=== PATIENT | male | born 1960 ===

== ENCOUNTER → 2021-07-01 | Outpatient (CLI) | payer OTHER ==
--- NOTE | 2021-07-01 17:20 | P.STRESS ---
- Stress Test Note Stress Test Results/Findings: Exam Performed: stress test Exam Date: 07/01/21 Reason for Exam: ANGINA PECTORIS Height: 5 ft 10 in Weight: 72.7 kg Protocol: JUSTINO Stage: 5 Duration of Exercise: 13:40 Resting Heart Rate: 70 Resting Blood Pressure: 158/106 Maximum Achieved Heart Rate: 139 Maximum Achieved Blood Pressure: 179/93 85% PMHR: 135 100% PMHR: 159 METS: 14.9 Technologist Comment: Stress Test Results/Findings: This is a 61-year-old gentleman with history of smoking and hypercholesterolemia being evaluated for chest pains. Stress data: Baseline EKG showed sinus rhythm with normal [place] interval and QRS duration. Blood pressure at rest is 158 106 with pulse rate of 70. Patient walked on the Justino protocol for 13 minutes and 40 seconds achieving a maximum heart rate of 139 with a blood pressure of 149/85. EKGs taken during and after exercise did not reveal any changes of ischemia. Patient did not experience any chest pain. Final impression: #1. Negative stress test #2. Patient did not experience any chest pain but 3. No arrhythmias noted. 4. Patient's exercise capacity is good
== END | disposition home or self-care (01) ==
LOC: RADNMMAIN 08:30
PROVIDERS: ATTEND Family Medicine
DX: I20.9 Angina pectoris, unspecified (principal)
CPT/HCPCS: 93017

== ENCOUNTER → 2021-10-06 | Outpatient (CLI) | payer OTHER ==
--- NOTE | 2021-10-06 07:37 | MR ---
EXAMINATION TYPE: MR lumbar spine wo con DATE OF EXAM: 10/06/2021 COMPARISON: NONE HISTORY: lumbar pain TECHNIQUE: Multiplanar, multisequence imaging of the lumbar spine is performed without IV contrast. FINDINGS: Sagittal images of the lumbar spine show vertebral body heights to appear satisfactory. The re is slight grade 1 retrolisthesis L3 on L4. Multilevel disc desiccation moderate to severe disc spa ce narrowing with heterogeneous Modic type I endplate changes at the L4-L5 level. Moderate to severe disc space narrowing with vacuum disc phenomenon and heterogeneous Modic type III endplate changes ri ght L5-S1 level. Mild to moderate disc space narrowing with vacuum disc phenomenon and mild to modera te anterior spurring at the L3-L4 level. The conus medullaris is low-lying terminating at mid to inf erior L2 level. No abnormal signal. No suspicious clumping of the lumbosacral nerve roots. Axial images show T12-L1 and L1-L2 levels to appear within normal limits. Axial images at the L2-L3 level show [id number] broad disc bulge mildly effacing the anterior t hecal sac with patent bilateral neural foramina. Axial images at the L3-L4 level shows subtle spondylolisthesis with moderate broad-based posterior di sc protrusion effacing the anterior thecal sac. There is mild facet degenerative change and ligamentu m flavum hypertrophy effacing posterior lateral thecal sac. There is mild left greater than right galdino ateral anterior inferior neural foraminal narrowing. Axial images at the L4-L5 levels show mild to moderate facet arthropathy and ligament flavum hypertro phy effacing posterior lateral thecal sac. There is mild broad disc bulge mildly effacing the anterio r thecal sac. There is mild bilateral anterior inferior neural foraminal narrowing. Axial images at the L5-S1 level shows mild facet arthropathy bilaterally. There is mild broad disc bu lge with tiny central disc protrusion minimally effacing anterior thecal sac. There is moderate bilat eral anterior inferior narrowing with encroachment along the extraforaminal left L5 nerve anteriorly sagittal image 1 and extraforaminal right L5 nerve inferiorly sagittal image 12 corresponding to axia l image 3. Paraspinal muscle bulk is preserved. IMPRESSION: Multilevel degenerative changes in the mid to lower lumbar spine as detailed above. Corre late for bilateral L5 radiculopathy type symptoms advised.
== END | disposition home or self-care (01) ==
LOC: RADMRIMAIN 06:57
PROVIDERS: ATTEND Nurse Practitioner Acute Care
DX: M51.26 Other intervertebral disc displacement, lumbar region (principal); M43.16 Spondylolisthesis, lumbar region; M47.817 Spondylosis without myelopathy or radiculopathy, lumbosacral region; M99.73 Connective tissue and disc stenosis of intervertebral foramina of lumbar region
CPT/HCPCS: 72148

== ENCOUNTER → 2021-10-07 | Outpatient (CLI) | payer OTHER ==
--- NOTE | 2021-10-07 09:09 | MR ---
EXAMINATION TYPE: MR knee LT wo con DATE OF EXAM: 10/07/2021 COMPARISON: None. HISTORY: Left knee pain and swelling per patient. TECHNIQUE: Multiplanar, multisequence imaging of the left knee is performed without IV contrast. FINDINGS: MEDIAL MENISCUS: Medial extrusion of medial meniscus on coronal images. Fraying and increased signal posterior horn extends into central body greatest along the inferior articular surface consistent wit h full-thickness tear. LATERAL MENISCUS: Anterior and posterior horns are intact without tear. CRUCIATE LIGAMENTS: The anterior and posterior cruciate ligaments are intact and unremarkable. COLLATERAL LIGAMENTS: The medial collateral ligament and lateral collateral ligament complex are inta ct and unremarkable. EXTENSOR MECHANISM: Visualized quadriceps and patellar tendons are intact. EFFUSION: Small size suprapatellar joint effusion. POPLITEAL CYST: No popliteal/cain cyst. TRICOMPARTMENT SPACES: Mild to moderate tricompartment joint space loss and spurring. CARTILAGE: Some cartilaginous loss and fissuring along the posterior patellar pole consistent with ch ondromalacia patella. Fissuring and cartilaginous loss also identified medial tibial femoral compartm ent BONE MARROW SIGNAL: Heterogeneous increased T2 signal along the posterior patellar pole. OTHER: No additional significant abnormality is appreciated. IMPRESSION: 1. Full-thickness tearing of the medial meniscus through the central body and posterior horn. 2. There are moderate tricompartment degenerative changes as detailed above. 3. Small suprapatellar joint effusion.
--- NOTE | 2021-10-07 09:18 | MR ---
EXAMINATION TYPE: MR shoulder LT wo con DATE OF EXAM: 10/07/2021 COMPARISON: None. HISTORY: Left shoulder chronic pain with difficulty raising arm overhead TECHNIQUE: Multiplanar, multisequence imaging of the left shoulder is performed without contrast. FINDINGS: Rotator Cuff: Distal supraspinatus and infraspinatus tendons are intact. Subscapularis tendon intact axial image 16 for reference. Rotator cuff muscle bulk is preserved. Acromioclavicular Joint: Acromioclavicular joint appears within normal limits. Underlying fat plane i s maintained. Distal acromion morphology unremarkable. Glenohumeral Joint: Large osteophyte extending inferiorly from the medial aspect of the humeral head. Osseous glenoid shows heterogeneous increased signal diffusely with moderate to severe glenohumeral joint narrowing. Small rim of thickened joint effusion noted extending inferiorly coronal image 13 Labrum: The superiorly labrum has increased signal consistent with SLAP-type tear. Biceps Tendon: The long head of biceps is in normal location within bicipital groove. Increased signa l in the intracapsular portion noted seen best on sagittal images Bone marrow signal: Marked heterogeneous increased T2 signal in the osseous glenoid. Diminished T1 an d increased T2 signal involving the humeral head superior slightly medial aspect. Other: No additional significant abnormality is appreciated. IMPRESSION: 1. Fairly advanced glenohumeral joint arthropathy as detailed above likely accounting for SLAP type t ear of the superior labrum and intracapsular bicipital tendinopathy. Suspect developing avascular nec rosis of the humeral head.
== END | disposition home or self-care (01) ==
LOC: RADMRIMAIN 07:40
PROVIDERS: ATTEND Nurse Practitioner Acute Care
DX: M17.12 Unilateral primary osteoarthritis, left knee (principal); M25.462 Effusion, left knee; M23.222 Derangement of posterior horn of medial meniscus due to old tear or injury, left knee; M19.012 Primary osteoarthritis, left shoulder

== ENCOUNTER 2023-03-07 08:17 | Day surgery (SDC) | payer OTHER ==
[~2023-03-07 08:17] MED LIST: LACTATED RINGERS 1,000 ML IV SCH; LIDOCAINE 1% (10MG/ML) FOR IV START INTRADERMA PRN
[2023-03-07 09:07] VITALS: RESP 16; TEMP 97.5
[2023-03-07] MEDS ORDERED: PROPOFOL 10 MG/ML 20 ML VIAL IV ONE (09:39)
--- NOTE | 2023-03-07 09:43 | P.GSHP ---
History of Present Illness H&P Date: 03/07/23 Chief Complaint: Colon cancer screening 62-year-old male here for colonoscopy. No bowel complaints. No family history of colon cancer. Last colonoscopy 14 years ago. Past Medical History Past Medical History: No Reported History History of Any Multi-Drug Resistant Organisms: None Reported Additional Past Surgical History / Comment(s): hernia repair Past Anesthesia/Blood Transfusion Reactions: No Reported Reaction Smoking Status: Former smoker Medications and Allergies Home Medications Medication Instructions Recorded Confirmed Type Acetaminophen Tab [Tylenol Tab] 1,000 mg PO Q6HR PRN 03/03/23 03/03/23 History Allergies Allergy/AdvReac Type Severity Reaction Status Date / Time No Known Allergies Allergy Verified 03/03/23 09:42 Surgical - Exam Vital Signs Temp Pulse Resp BP Pulse Ox 97.5 F L 63 16 154/91 100 03/07/23 09:00 03/07/23 09:00 03/07/23 09:00 03/07/23 09:00 03/07/23 09:00 Physical exam: General: Well-developed, well-nourished HEENT: Normocephalic, sclerae nonicteric Abdomen: Nontender, nondistended Extremities: No edema Neuro: Alert and oriented Assessment and Plan (1) Colon cancer screening Narrative/Plan: Will proceed with colonoscopy at this time. Current Visit: Yes Status: Acute Code(s): Z12.11 - ENCOUNTER FOR SCREENING FOR MALIGNANT NEOPLASM OF COLON SNOMED Code(s): 082831893
--- NOTE | 2023-03-07 09:53 | P.PCN ---
Date of Procedure: 03/07/23 Procedure(s) Performed: PREOPERATIVE DIAGNOSIS: Colon cancer screening POSTOPERATIVE DIAGNOSIS: Normal exam PROCEDURE: Colonoscopy ANESTHESIA: MAC SURGEON: Ravi Roche M.D. SPECIMENS: None ENDOSCOPIC PROCEDURE: The patient was placed on the endoscopy table in the left decubitus position. The Olympus colonoscope was inserted into the anus and passed under direct visualization to the base of the cecum. The appendiceal orifice was visualized. From that point the scope was slowly withdrawn inspecti ng all surfaces carefully. There were no neoplastic inflammatory or polypoid lesions throughout the cecum, ascending, transverse, descending, sigmoid and rectum. There was no visible diverticulosis noted. Digital rectal examination was normal. The patient was taken to the recovery room in stable condition per anesthesia guidelines. RECOMMENDATIONS: Resume diet. Repeat colonoscopy in 10 years.
[2023-03-07 10:15] VITALS: BP 132/85; PULSE 59
== END 2023-03-07 10:41 | disposition home or self-care (01) ==
LOC: ORWHC2ENDO 08:17
PROVIDERS: ATTEND Surgery
DX: Z12.11 Encounter for screening for malignant neoplasm of colon (principal); Z98.890 Other specified postprocedural states; Z87.891 Personal history of nicotine dependence; Z79.899 Other long term (current) drug therapy
CPT/HCPCS: 45378; J2704

== ENCOUNTER → 2024-08-09 | Outpatient (CLI) | payer OTHER | END | disposition home or self-care (01) | LOC: LABPAT 15:38 | PROVIDERS: ATTEND Orthopaedic Surgery | DX: Z01.812 Encounter for preprocedural laboratory examination (principal); M17.11 Unilateral primary osteoarthritis, right knee; Z22.322 Carrier or suspected carrier of Methicillin resistant Staphylococcus aureus | CPT/HCPCS: 87070 ==

== ENCOUNTER 2024-08-20 05:43 | Day surgery (SDC) | payer OTHER ==
--- NOTE | 2024-08-19 08:51 | P.HPOR ---
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 He notes anterior medial pain along with swelling and stiffness. He is having night symptoms. He's tried medications along with injections with only minimal relief. He notes daily pain that limits his function and activities. Review of Systems Per HPI Past Medical History Past Medical History: Hyperlipidemia, Hypertension, Osteoarthritis (OA) Additional Past Medical History / Comment(s): hx of elevated liver enzymes due to naproxen, returned to normal. left shoulder pain and slight tear. History of Any Multi-Drug Resistant Organisms: None Reported Additional Past Surgical History / Comment(s): hernia repair. colonoscopy Past Anesthesia/Blood Transfusion Reactions: No Reported Reaction Smoking Status: Former smoker, Light tobacco smoker - Past Family History Father Family Medical History: Diabetes Mellitus Additional Family Medical History / Comment(s): etoh abuse, smoker. liver issues Medications and Allergies Home Medications Medication Instructions Recorded Confirmed Type Losartan-Hctz 50-12.5 mg [Hyzaar 1 tab PO DAILY 08/15/24 08/15/24 History 50-12.5] Rosuvastatin Calcium 5 mg PO HS 08/15/24 08/15/24 History Unk Multi Vitamin 1 tab PO DAILY 08/15/24 08/15/24 History Unk Naproxen 1 tab PO DIRECTED PRN 08/15/24 08/15/24 History Unk Tylenol 1 tab PO DIRECTED PRN 08/15/24 08/15/24 History Loratadine 10 mg PO HS 08/16/24 08/16/24 History Allergies Allergy/AdvReac Type Severity Reaction Status Date / Time No Known Allergies Allergy Verified 08/15/24 11:57 Physical Examination - Knee right Appearance: effusion Effusion grade: grade 1 Varus alignment in stance: 10 degrees Tenderness with palpation: anterior, medial Pain: throughout ROM Gait: limping ROM: extension: -10 degrees ROM: flexion: 120 degrees Crepitus with motion: Yes Strength: extension: 5/5 Strength: flexion: 5/5 Meniscal tests: medial meniscal tests: positive, medial joint line pain: positive Results He is a well-developed well-nourished male approximately 5 foot 10, 173 pounds of mesomorphic habitus. HEENT exam is nonfocal, neck is supple. He has painless passive motion of the right hip. Straight leg raise is negative. He is tender about the medial joint line of the right knee. Collaterals were stable, North was negative, Jeanna's is equivocal. He has genu varum alignment. His distal neurovascular exam appears intact right lower extremity. - Diagnostic results Knee x-ray: image reviewed (Trays of the right knee obtained in the office show severe medial compartment osteoarthrosis with [id number] changes and subchondral sclerosis.) Assessment and Plan Assessment: Right knee severe medial and patellofemoral compartment osteoarthrosis Plan: I talked with patient at length regarding his condition along with treatment options. At this point he is quite sympathetic having pain and mechanical symptoms related to his right knee osteoarthrosis despite conservative measures. After a thorough discussion he opts to proceed with surgery. We'll plan to proceed with right total knee arthroplasty. Risks and benefits were discussed at length in layman's terms. We will institute DVT prophylaxis postoperatively.
[~2024-08-20 05:43] MED LIST changes: -LACTATED RINGERS 1,000 ML IV SCH; -LIDOCAINE 1% (10MG/ML) FOR IV START INTRADERMA PRN; +TRANEXAMIC 1,000 MG/100ML-NACL 1,000 MG in SALINE 1 100ML.BAG IVPB PRN
[2024-08-20] MEDS ORDERED: LIDOCAINE 1% (10MG/ML) FOR IV START INTRADERMA PRN (05:44)
[2024-08-20] MEDS: ACETAMINOPHEN TAB 500 MG TAB PO PRN (06:26)
[2024-08-20] MEDS: MELOXICAM 7.5 MG TAB PO PRN (06:26)
[2024-08-20] MEDS: LACTATED RINGERS 1,000 ML IV SCH (06:56)
[2024-08-20] MEDS: ONDANSETRON 4 MG/2 ML VIAL IVP ONE (06:56)
[2024-08-20] MEDS: DEXAMETHASONE SOD PHOSPHATE 4 MG/ML 1 ML VIAL IV ONE (06:56)
[2024-08-20] MEDS: IV FLUID CONTINUATION 1,000 ML IV ONE (06:57)
[2024-08-20] MEDS ORDERED: HYDROmorphone 0.5 MG/0.5 ML SYRINGE IVP PRN ×2 (07:00→09:11)
[2024-08-20] MEDS: MIDAZOLAM 2 MG/2 ML VIAL IV PRN (07:01)
[2024-08-20] MEDS: fentaNYL (PF) 50 MCG/ML 2 ML AMP IVP PRN (07:02)
--- NOTE | 2024-08-20 07:24 | P.ANPRN ---
Procedure Note - Anesthesia - Nerve Block Performed Right Adductor Canal Infusion Time Out Performed: Yes Date of Procedure: 08/20/24 Procedure Start Time: 07:01 Procedure Stop Time: 07:12 Location of Patient: PreOp Indication: Acute Post-Operative Pain, Requested by Surgeon Sedation Type: Sedate with meaningful contact maintained Preparation: Sterile Prep, Sterile Dressing Position: Supine Catheter: Indwelling Needle Types: Pajunk Needle Gauge: 18 Ultrasound used to visualize needle placement: Yes Ultrasound used to observe medication spread: Yes Injectate: 0.5% Ropivacaine (see comment for volume) (15 ml + 15 ml NS +4 mg Dexamethasone) Blood Aspirated: No Pain Paresthesia on Injection Noted: No Resistance on Injection: Normal Image Stored and Saved: Yes Events: Uneventful and Well Tolerated
--- NOTE | 2024-08-20 07:25 | P.ANPRN ---
Procedure Note - Anesthesia - Nerve Block Performed Right iPack Single Time Out Performed: Yes Date of Procedure: 08/20/24 Procedure Start Time: 07:13 Procedure Stop Time: 07:18 Location of Patient: PreOp Indication: Acute Post-Operative Pain, Requested by Surgeon Sedation Type: Sedate with meaningful contact maintained Preparation: Sterile Prep Position: Left Lateral Needle Types: Pajunk Needle Gauge: 21 Ultrasound used to visualize needle placement: Yes Ultrasound used to observe medication spread: Yes Injectate: 0.5% Ropivacaine (see comment for volume) (15 ml + 15 ml NS +4 mg Dexamethasone) Blood Aspirated: No Pain Paresthesia on Injection Noted: No Resistance on Injection: Normal Image Stored and Saved: Yes Events: Uneventful and Well Tolerated
[2024-08-20] MEDS: ceFAZolin 1,000 MG in SODIUM CHLORIDE 0.9% 1,000 ML IRRIGATION ONE (08:03)
[2024-08-20] MEDS: LACTATED RINGERS 1,000 ML IV ONE (08:52)
[2024-08-20] MEDS ORDERED: MAGNESIUM HYDROXIDE 2,400 MG/30 ML CUP PO PRN (09:11)
[2024-08-20] MEDS ORDERED: HYDROmorphone 1 MG/ML 1 ML SYRINGE IVP PRN (09:11)
[2024-08-20] MEDS ORDERED: ONDANSETRON 4 MG/2 ML VIAL IVP PRN (09:11)
[2024-08-20] MEDS ORDERED: NALOXONE 0.4 MG/ML 1 ML VIAL IV PRN (09:11)
[2024-08-20] MEDS ORDERED: HYDROcodone/APAP 7.5-325MG 1 EACH TAB PO PRN (09:11)
--- NOTE | 2024-08-20 09:30 | P.OP ---
Date of Procedure: 08/20/24 Preoperative Diagnosis: Right knee severe tricompartmental osteoarthrosis Postoperative Diagnosis: Same Procedure(s) Performed: Right total knee arthroplastycementedcruciate retaining Implants: DePuy attune size 8 cemented femoral component, size 7 cemented tibial component, 9 mm articular surface, 38 mm cemented patellar component. This is a cruciate retaining implant. Anesthesia: regional, spinal Surgeon: Pino Wood Special Services Coordinator #1: Kaden Asif Estimated Blood Loss (ml): 50 Pathology: none sent Condition: stable Disposition: PACU Indications for Procedure: The patient is a 64-year-old gentleman who presents with progressive right knee pain secondary to osteoarthrosis despite conservative measures. A discussion of the risks and benefits of operative intervention versus continued conservative measures was made with the patient. He opted to proceed with surgery. Operative risks include infection, neurovascular injury, development of blood clots, fracture, possible component loosening/failure and possible need for subsequent procedures was discussed. Informed consent was obtained. Operative Findings: As below Description of Procedure: The patient was brought to the operating room, and after induction of spinal anesthesia the right lower extremity was prepped and draped in a normal fashion. The tourniquet was inflated to 270 mmHg. A longitudinal incision extending 3 finger breaths above the superior pole of the patella extending to the medial aspect the tibial tubercle was then made. The skin and subcutaneous tissues were divided sharply. Electrocautery was used for hemostasis. A medial parapatellar arthrotomy was then performed. The medial soft tissues to include the superficial and deep portions of the medial collateral ligament as well as the medial hamstring tendons were elevated subperiosteally. The proximal medial tibia osteophytes were carefully removed. The patella was everted. The knee was flexed. A portion of the retropatellar fat pad was excised sharply. The anterior cruciate ligament was sacrificed. A starting hole was made in the distal femur 1 cm anterior to the posterior cruciate origin. An intramedullary femoral guide was gently inserted planning on 5 valgus distal cut with 9 mm distal resection. The cutting block was pinned in place. The distal cut was then made. The posterior referencing sizing guide was utilized. 3 of external rotation was built into the system and verified off the trans- epicondylar axis and the posterior condyles. I felt size 8 was most appropriate. The cutting block was pinned in place. The anterior, posterior, and chamfer cuts were then made. The bone fragments were removed. A sulcus cut was then made with the appropriate guide. The trial size 8 femoral component was then placed and was fully seated. There was good anterior to posterior and medial to lateral fit. The distal peg holes were then drilled. The trial component was then removed. Attention was then paid towards preparing the proximal tibia. An extra medullary guide was utilized in line with the tibial shaft and second metatarsal distally. A 7 posterior slope was planned. I planned on 2 mm resection from the medial compartment. The cutting block was pinned in place. The proximal tibial cut was then made. The bone was removed in one fragment. The remnants of the medial and lateral menisci were excised the capsule junction with electrocautery. The tibia sized most appropriately at size 7. The posterior osteophytes off the distal femur were carefully removed with a curved osteotome. The trial tibial and femoral components were placed along with a 9 millimeters articular surface. I was able to obtain full flexion and extension with good stability with varus and valgus stress. After several flexion and extension cycles, the tibial rotation was marked with electrocautery in line with the medial one third of the tibial tubercle. Attention was then paid towards preparing the patella. A patella reamer was utilized taking this down to 14 mm of bone stock. A good flush cut was made. The patella sized most appropriately at 38 millimeters. The peg holes were then drilled. The trial component was placed. The knee was taken through a range of motion. I had good patellofemoral tracking with no hands technique. The trial components were then removed. The tibia was prepared in the appropriate rotation with appropriate drill and keel punch. The flexion and extension gaps were checked and felt to be symmetric. The bony surfaces were prepared with pulsatile lavage and dried. The deep tibial component was then cemented in place and was fully seated. Excess cement was removed. The femoral component was cemented in place and was fully seated. Again excess cement was removed. The trial 9 millimeters surface was then inserted in the knee was put in full extension. The patella component was cemented in place. After the cement had sufficiently hardened, the knee was again taken through a range of motion. Again there was good stability in flexion and extension with varus and valgus stress. The trial articular surface was then removed. The final articular surface was placed and was impacted. Care was taken to avoid any soft tissue interposition. Pulsatile lavage was again utilized. The tourniquet was deflated with approximately 60 m inutes total tourniquet time. There was minimal drainage therefore a deep drain was not placed. The medial parapatellar arthrotomy was then closed with #2 Ethibond suture. The subcutaneous tissues were reapproximated interrupted 2-0 Vicryl sutures. The skin was reapproximated with 3-0 subarticular strata fix suture. Skin tape and adhesive was applied. A sterile dressing was applied. The patient was then awoken from sedation and transferred to recovery room in good condition. Blood loss was estimated at 50 milliliters. No complications were incurred. Sponge and needle counts were correct at the end the case. Kaden KILPATRICK assisted during the major components this case to include exposure, bone resection, and implantation.
[2024-08-20] MEDS: ROPIVACAINE 1,100 MG, SODIUM CHLORIDE 0.9% 500 ML 330 ML, EMPTY PAIN BALL 1 EACH MISCELLANE PRN (09:40)
--- NOTE | 2024-08-20 10:47 | XR ---
EXAMINATION TYPE: XR knee limited RT DATE OF EXAM: 08/20/2024 10:03 AM COMPARISON: 06/07/2024 CLINICAL INDICATION: Male, 64 years old with history of Evaluation for Postop abnormality and alignme nt, , FINDINGS: Images show placement of right total knee arthroplasty. Both distal femoral and proximal tibial compo nents of the prosthesis are well seated without periprosthetic fracture. Alignment grossly anatomic. Anterior soft tissue swelling with soft tissue air as well as intra-articular air related to recent o peration. IMPRESSION: Uncomplicated postoperative appearance right total knee arthroplasty. [facility], , 08/20/2024 10:44 AM
--- NOTE | 2024-08-20 16:27 | P.CONS ---
History of Present Illness - Reason for Consult Consult date: 08/20/24 Medical Management Requesting physician: Pino Wood - History of Present Illness History of Presenting Illness: Patient is a very pleasant 64-year-old male with a past medical history of hypertension, hyperlipidemia, and osteoarthritis. He is currently admitted under orthopedic surgery team status post right total knee arthroplasty. We were consulted for medical management throughout hospitalization. Patient was seen and fully evaluated in room 462 shortly after completion of surgical procedure. He reports he is doing well and states postoperative pain is currently managed and under control. He denies having any postoperative nausea or vomiting and reports urinating without any difficulties since procedure. Patient denies having any other complaints including headache, lightheadedness, dizziness, chest pain, palpitations, shortness of breath, or experiencing any focal numbness in extremities. Review of systems: Pertinent positives and negatives as discussed in HPI, a complete review of systems was performed and all other systems are negative. Physical exam: Vital signs reviewed and stable. General: Nontoxic, no distress and appears stated age. Derm: Skin warm and dry, normal coloration for ethnicity. Head: Atraumatic, normocephalic and symmetric. Eyes: EOM's intact, no lid lag, and anicteric sclera Mouth: no lip lesions, mucus membranes moist Cardiovascular: regular rate and rhythm with normal S1S2, no murmur, positive posterior tibial pulses bilaterally, and cap refill < 2 seconds. Lungs: Respirations even, regular, and unlabored on room air. Lungs CTA bilaterally, no rhonchi, no rales, no wheezing, and no accessory muscle usage. Abdominal: soft, nontender to palpation, no guarding, no appreciable organomegaly Ext: Movement and sensation intact.. No gross muscle atrophy, no edema, no contractures. Postoperative dressing/Erasmo wrap in place to right knee. Ice pack also in place at this time. Neuro: Speech clear, face symmetrical and CN II-XII grossly intact with no noted focal neuro deficits Psych: Alert and oriented to person, place, time, and situation. Appropriate and pleasant affect. Assessment and Plan of Care: Status post right total knee arthroplasty Management per primary admitting orthopedic surgery team including DVT prophylaxis, pain management, wound/dressing management, weightbearing, and PT/OT. Currently DVT prophylaxis with Xarelto 10 mg daily. Hypertension Monitor vital signs and continue daily medication regimen with losartanhydrochlorothiazide 50-12.5 mg tablets daily. Hyperlipidemia Continue daily medication regimen with rosuvastatin 5 mg nightly. Data and imaging reviewed: Reviewed operative report. Vital signs reviewed. Blood pressure 119/74, heart rate 91, respiratory rate 19, temp 97.4 F, and SpO2 100% on room air. Thank you for allowing us to participate in the care of this pleasant patient. Do not hesitate to contact us with questions. Someone can be reached from the [facility] hospitalist group all hours of the day at [phone] or via [employer]. Patient was seen independently by Nurse Practitioner. This document was prepared using [employer] dictation software. Please allow for errors in radial saw operator while rare they do occur. Gildardo Brewer NP rendered care for this patient independently, reviewed the findings and plan as documented in the note above and agree with plan. I did not physically speak with or examine the patient on this date. Past Medical History Past Medical History: Hyperlipidemia, Hypertension, Osteoarthritis (OA) Additional Past Medical History / Comment(s): hx of elevated liver enzymes due to naproxen, returned to normal. left shoulder pain and slight tear. History of Any Multi-Drug Resistant Organisms: None Reported Additional Past Surgical History / Comment(s): hernia repair. colonoscopy Past Anesthesia/Blood Transfusion Reactions: No Reported Reaction Past Psychological History: No Psychological Hx Reported Smoking Status: Former smoker, Light tobacco smoker Past Alcohol Use History: None Reported Additional Past Alcohol Use History / Comment(s): quit 18 yrs ago Past Drug Use History: Marijuana Additional Drug Use History / Comment(s): cbd gummie , pt aware not to use 24 hrs before procedure - Past Family History Father Family Medical History: Diabetes Mellitus Additional Family Medical History / Comment(s): etoh abuse, smoker. liver issues Medications and Allergies Home Medications Medication Instructions Recorded Confirmed Type Losartan-Hctz 50-12.5 mg [Hyzaar 1 tab PO DAILY 08/15/24 08/20/24 History 50-12.5] Rosuvastatin Calcium 5 mg PO HS 08/15/24 08/20/24 History Unk Multi Vitamin 1 tab PO DAILY 08/15/24 08/20/24 History Unk Naproxen 1 tab PO DIRECTED PRN 08/15/24 08/20/24 History Unk Tylenol 1 tab PO DIRECTED PRN 08/15/24 08/20/24 History Loratadine 10 mg PO HS 08/16/24 08/20/24 History Allergies Allergy/AdvReac Type Severity Reaction Status Date / Time No Known Allergies Allergy Verified 08/20/24 06:12 Physical Exam Vitals: Vital Signs Temp Pulse Pulse Resp BP BP Pulse Ox 08/20/24 09:57 70 16 114/70 100 08/20/24 09:42 70 16 114/63 100 08/20/24 09:27 97.1 F L 78 14 118/62 99 08/20/24 07:25 62 16 120/79 99 08/20/24 06:25 98.3 F 66 18 118/74 99 Intake and Output 08/19/24 08/20/24 08/20/24 22:59 06:59 14:59 Intake Total 200 1051 Output Total 50 Balance 200 1001 Intake: IV 200 1051 Output: Estimated Blood Loss 50 Other: Weight 76.6 kg 76.6 kg
[2024-08-20] MEDS: ATORVASTATIN 10 MG TAB PO SCH (21:31)
[2024-08-20] MEDS: LORATADINE 10 MG TAB PO SCH (21:31)
[2024-08-20] MEDS: SENNOSIDES-DOCUSATE SODIUM 1 EACH TAB PO SCH (21:31)
[2024-08-20] MEDS: HYDROcodone/APAP 5-325MG 1 EACH TAB PO PRN (21:31)
--- NOTE | 2024-08-21 07:00 | P.PN ---
Progress Note - Text Progress Note Date: 08/21/24 Postoperative day # 1 status post total knee arthroplasty, and adductor canal catheter placed for postoperative analgesia, currently at ropivacaine 0.2% 8 mL per hour and continuous infusion, visual analogue scale is 2/10, patient using oral pain medication for breakthrough pain. Assessment and plan= Acute postoperative pain, adductor canal catheter for pain control, pain is well controlled we'll continue the same management.
[2024-08-21 08:29] LABS: Basophils # (A) 0.01 X 10*3/uL (0.00-0.10); Basophils % (A) 0.1 %; Eosinophils # (A) 0 X 10*3/uL (0.04-0.35); Eosinophils % (A) 0 %; HCT 32.7 % (39.6-50.0); HGB 11.2 g/dL (13.0-17.0); Lymphocytes # (A) 0.67 X 10*3/uL (0.90-5.00); Lymphocytes % (A) 5.7 %; MCH 31.3 pg (27.0-32.0); MCHC 34.3 g/dL (32.0-37.0); MCV 91.3 FL (80.0-97.0); Mean Platelet Volume 10.4 FL (9.5-12.2); Monocytes # (A) 1.04 X 10*3/uL (0.20-1.00); Monocytes % (A) 8.9 %; NRBC Per 100 WBC 0 X 10*3/uL (0.00-0.01); Neutrophils # (A) 9.89 X 10*3/uL (1.80-7.70); Neutrophils % (A) 84.8 %; Platelet Count 175 X 10*3/uL (140-440); RBC 3.58 X 10*6/uL (4.40-5.60); RDW 12.5 % (11.5-14.5); WBC 11.67 X 10*3/uL (4.50-10.00)
[2024-08-21 08:38] VITALS: BP 111/67; PULSE 66; RESP 17; TEMP 97.9
[2024-08-21] MEDS: RIVAROXABAN 10 MG TAB PO SCH (08:55)
[2024-08-21] MEDS: LOSARTAN-HCTZ 50-12.5 MG 1 EACH TAB PO SCH (08:55)
[2024-08-21 09:02] LABS: Blood Urea Nitrogen 17.1 mg/dL (9.0-27.0); Calcium 8.7 mg/dL (8.7-10.3); Carbon Dioxide 22.2 mmol/L (21.6-31.8); Chloride 104 mmol/L (96-109); Glucose 133 mg/dL (70-110); Potassium 4.4 mmol/L (3.5-5.5); Sodium 137 mmol/L (135-145)
--- NOTE | 2024-08-21 12:37 | P.PN ---
Subjective Progress Note Date: 08/21/24 Hospital Course: Patient is a very pleasant 64-year-old male with a past medical history of hypertension, hyperlipidemia, and osteoarthritis. He is currently admitted under orthopedic surgery team status post right total knee arthroplasty. We were consulted for medical management throughout hospitalization. Physical exam: Patient seen and fully evaluated at bedside. He is postoperative day 1 and appears to be doing well. Patient reports pain is currently controlled and states that he worked well with physical therapy with walking and doing the stairs. Patient denies having any questions, needs, complaints, or concerns at this time. Vital signs reviewed and stable. General: Nontoxic, no distress and appears stated age. Derm: Skin warm and dry, normal coloration for ethnicity. Head: Atraumatic, normocephalic and symmetric. Eyes: EOM's intact, no lid lag, and anicteric sclera Mouth: no lip lesions, mucus membranes moist Cardiovascular: regular rate and rhythm with normal S1S2, no murmur, positive posterior tibial pulses bilaterally, and cap refill < 2 seconds. Lungs: Respirations even, regular, and unlabored on room air. Lungs CTA bilaterally, no rhonchi, no rales, no wheezing, and no accessory muscle usage. Abdominal: soft, nontender to palpation, no guarding, no appreciable organomegal y Ext: Movement and sensation intact.. No gross muscle atrophy, no edema, no contractures. Postoperative dressing/Erasmo wrap in place to right knee. Ice pack also in place at this time. Neuro: Speech clear, face symmetrical and CN II-XII grossly intact with no noted focal neuro deficits Psych: Alert and oriented to person, place, time, and situation. Appropriate and pleasant affect. Assessment and Plan of Care: Status post right total knee arthroplasty Management per primary admitting orthopedic surgery team including DVT prophylaxis, pain management, wound/dressing management, weightbearing, and PT/OT. Currently DVT prophylaxis with Xarelto 10 mg daily. Hypertension Monitor vital signs and continue daily medication regimen with losartan hydrochlorothiazide 50-12.5 mg tablets daily. Hyperlipidemia Continue daily medication regimen with rosuvastatin 5 mg nightly. Data and imaging reviewed: Postoperative labs reviewed. CBC showing leukocytosis with WBC count of 11.67 and normocytic anemia with hemoglobin of 11.2. BMP unremarkable. Blood glucose 133. Magnesium 2.0. Vital signs reviewed. Blood pressure 111/67, heart rate 66, respiratory rate 17, temp 97.9 F, and SpO2 of 99% on room air. Patient is medically optimized and cleared from medical perspective for discharge once cleared by primary admitting orthopedic surgery team. Thank you for allowing us to participate in the care of this pleasant patient. Do not hesitate to contact us with questions. Someone can be reached from the [facility] hospitalist group all hours of the day at [phone] or via perfect serve. Patient was seen independently by Nurse Practitioner. This document was prepared using [employer] dictation software. Please allow for errors in addresser while rare they do occur. Gildardo Brewer NP rendered care for this patient independently, reviewed the findings and plan as documented in the note above and agree with plan. I did not physically speak with or examine the patient on this date. Objective - Vital Signs Vital signs: Vital Signs Temp 98.2 F 08/21/24 02:15 Pulse 76 08/21/24 02:15 Resp 15 08/21/24 02:15 BP 111/68 08/21/24 02:15 Pulse Ox 99 08/21/24 02:15 FiO2 Intake & Output 08/20/24 08/21/24 08/21/24 18:59 06:59 18:59 Intake Total 1531 Output Total 300 Balance 1231 Weight 76.6 kg Intake: IV 1051 Oral 480 Output: Urine 250 Estimated Blood Loss 50 Other: Voiding Method Toilet # Voids 4 - Labs CBC & Chem 7: 08/21/24 02:55 08/21/24 02:55
--- NOTE | 2024-08-21 12:42 | P.DS ---
Providers Date of admission: 08/20/2024 Expected date of discharge: 08/21/24 Attending physician: Pino Wood Consults: 08/20/24 09:11 Consult Physician Routine Consulting Provider: Konstantin Michelle Consult Reason/Comments: medical management s/p right total knee arthroplasty Do you want consulting provider notified?: Yes Primary care physician: Stated None Hospital Course: Date of admission: 08/20/2024 Date of discharge: 08/21/2024 Admission diagnosis: Right knee osteoarthritis Discharge diagnosis: Same Attending physician: Dr. Wood Surgical procedures: Right total knee arthroplasty Brief history: Patient is a 64 years old with a history of progressive primary right knee osteoarthritis. At this point patient has failed conservative treatment measures and has opted to proceed with a elective right total knee arthroplasty. Hospital course: Details of patient's surgery can be found in operative report. Patient tolerated the procedure well and was subsequently transported to orthopedic floor. Patient's orthopeidc and medical care was provided daily. Patient had daily laboratory tests performed for evaluation of overall blood counts. Patient had daily physical therapy to include strengthening range of motion as well as education with walker ambulation. Patient was treated with Xarelto for their postoperative DVT prophylaxis during their inpatient stay. Patient was noted to have a relatively uneventful postoperative course. Patient reported satisfactory pain control with oral pain medications by postoperative day 1. Patient showed satisfactory progress with physical therapy. Patient moved steadily through the program and had no difficulty meeting the goals by postoperative day 1. Given patient's otherwise satisfactory course and having met physical therapy goals, plan is to discharge patient home with health services on postoperative day 1. Discharge condition/disposition: Patient will be discharged home with health services in stable condition. Discharge medications: Instructions are given on resumption of patient's normal daily medications per primary care recommendation, in addition patient will be prescribed [facility]; senna; Eliquis 2.5 mg twice a day 2 weeks. Discharge instructions: 1. Wound care and infection precautions, keep incision dry and covered while showering, no lotions, creams, moisturizers. No soaking, tubs, pools, hottubs. Do not scrub over the incision. 2. Weight-bear as tolerated with walker / cane until follow-up. 3. Ice and elevate when necessary. Do not exceed 20 minutes per hour with ice pack. 4. Utilize compression sleeve until seen at first follow up appointment. 5. Visiting nursing care. 6. Home physical therapy including home CPM. 7. Pain meds and anticoagulants per prescription. 8. Pain medication has potential to cause constipation. Increase oral fluid and fiber intake. Contact primary care provider if you have not had a bowel movement within 48 hours after discharge 9. No anti-inflammatory medication until discussed at first post operative visit, this including Motrin, Aleve, Mobic, Diclofenac. 10. Follow up in office at 2 weeks postop with Chalino Rivera PA-C / Kaden Asif PA-C 11. Follow up with your primary care doctor 7-10 days after discharge. 12. Contact [facility] with any questions, . Assessment: Right knee osteoarthritis Procedures: Right total knee arthroplasty Patient Condition at Discharge: Good Plan - Discharge Summary Discharge Rx Participant: No New Discharge Prescriptions: New Apixaban [Eliquis] 2.5 mg PO BID #60 tab Sennosides/Docusate Sodium [Senna Plus 8.6-50 mg Softgel] 1 each PO DAILY #20 capsule HYDROcodone/APAP 5-325MG [[facility] 5-325] 1 - 2 tab PO Q6HR PRN #36 tab PRN Reason: Pain No Action Rosuvastatin Calcium 5 mg PO HS Unk Tylenol 1 tab PO DIRECTED PRN PRN Reason: Pain Unk Naproxen 1 tab PO DIRECTED PRN PRN Reason: Pain Losartan-Hctz 50-12.5 mg [Hyzaar 50-12.5] 1 tab PO DAILY Unk Multi Vitamin 1 tab PO DAILY Loratadine 10 mg PO HS Discharge Medication List Losartan-Hctz 50-12.5 mg [Hyzaar 50-12.5] 1 tab PO DAILY 08/15/24 [History] Rosuvastatin Calcium 5 mg PO HS 08/15/24 [History] Unk Multi Vitamin 1 tab PO DAILY 08/15/24 [History] Unk Naproxen 1 tab PO DIRECTED PRN 08/15/24 [History] Unk Tylenol 1 tab PO DIRECTED PRN 08/15/24 [History] Loratadine 10 mg PO HS 08/16/24 [History] Apixaban [Eliquis] 2.5 mg PO BID #60 tab 08/21/24 [Rx] HYDROcodone/APAP 5-325MG [[facility] 5-325] 1 - 2 tab PO Q6HR PRN #36 tab 08/21/24 [Rx] Sennosides/Docusate Sodium [Senna Plus 8.6-50 mg Softgel] 1 each PO DAILY #20 capsule 08/21/24 [Rx] Follow up Appointment(s)/Referral(s): Kaden Asif PAC [PHYSICIAN ASSISTANT PROFESSOR OF ENGLISH] - 2 Weeks Patrizia Paul MD [REFERRING] - 1 Week [facility] [NON-STAFF] - 1-2 Days ([facility] will call you to schedule your in home nursing and physical therapy visits. ) Patient Instructions/Handouts: Knee Replacement (GEN) Activity/Diet/Wound Care/Special Instructions: Orthopedic Discharge Instructions: 1. Wound care and infection precautions, keep incision dry and covered while showering, no lotions, creams, moisturizers. No soaking, pools, hot tubs. Do not scrub over incision. 2. Weight-bear as tolerated with walker / cane until follow-up. 3. Ice and elevate when necessary. Do not exceed 20 minutes per hour with ice pack. 4. Utilize compression sleeve until seen at first follow up appointment. 5. Pain meds and anticoagulants per prescription. 6. Pain medication has potential to cause constipation. Increase oral fluid and fiber intake. Contact primary care provider if you have not had a bowel movement within 48 hours after discharge. 7. No anti-inflammatory medication until discussed at first post operative visit, this including Motrin, Aleve, Mobic, Diclofenac. 8. Follow up in office at 2 weeks postop with Chalino Rivera PA-C / Kaden Asif PA-C 9. Follow up with your primary care doctor 7-10 days after discharge. 10. Contact [facility] with any questions, [phone]. 11. A Flexinator should be delivered to your home through an agency assigned from the [facility]. If you do not hear anything about it by Monday, contact the [facility]. Keep incision clean, dry, intact. While showering, cover fusion tape with Saran wrap. Keep fusion tape on until follow-up appointment in office in 2 weeks. Discharge Disposition: HOME WITH HOME HEALTH SERVICES
--- NOTE | 2024-08-21 13:16 | P.PN ---
Subjective Progress Note Date: 08/21/24 Principal diagnosis: Right knee osteoarthritis Patient was seen at bedside this morning lying; position with dressing of the right knee and ice over the knee. Patient says physical therapy did go well this morning and he walked down the harris and up-and-down steps without issue. Patient says he has been urinating since surgery without issue. Patient says no bowel movement yet, however, patient says he hasn't passed gas. Patient denies any other issues at this time. Patient says he does have a walker home. Objective - Vital Signs Vital signs: Vital Signs Temp 97.9 F 08/21/24 08:00 Pulse 66 08/21/24 08:00 Resp 17 08/21/24 08:00 BP 111/67 08/21/24 08:00 Pulse Ox 99 08/21/24 08:00 FiO2 Intake & Output 08/20/24 08/21/24 08/21/24 18:59 06:59 18:59 Intake Total 1531 Output Total 300 Balance 1231 Weight 76.6 kg Intake: IV 1051 Oral 480 Output: Urine 250 Estimated Blood Loss 50 Other: Voiding Method Toilet # Voids 4 - Exam Right knee: Incision is clean, dry, and intact. The exofin fusion tape is in good condition. There is minimal soft tissue swelling and ecchymosis surrounding the medial and lateral aspects of the incision. Calf is soft, no tenderness with palpation. Plantar flexion, dorsiflexion, EHL, FHL are intact. Sensory exam to light touch throughout the extremity is intact, dorsal pedis pulses 2+. - Labs CBC & Chem 7: 08/21/24 02:55 08/21/24 02:55 Labs: Abnormal Lab Results - Last 24 Hours (Table) 08/21/24 08/21/24 Range/Units 02:55 02:55 WBC 11.67 H (4.50-10.00) X 10*3/uL RBC 3.58 L (4.40-5.60) X 10*6/uL Hgb 11.2 L (13.0-17.0) g/dL Hct 32.7 L (39.6-50.0) % Immature Gran # 0.06 H (0.00-0.04) X 10*3/uL Neutrophils # 9.89 H (1.80-7.70) X 10*3/uL Lymphocytes # 0.67 L (0.90-5.00) X 10*3/uL Monocytes # 1.04 H (0.20-1.00) X 10*3/uL Eosinophils # 0 L (0.04-0.35) X 10*3/uL Glucose 133 H (70-110) mg/dL Assessment and Plan Assessment: 1. Right knee osteoarthritis - Postoperative day 1 status post right total knee arthroplasty Plan: 1. Right knee osteoarthritis - right total knee arthroplasty performed , 08/20/2024. Patient stable but says morning. Patient did do well with therapy this morning. Patient does have a walker at home. Discharge home today with health services. 2. Appreciate medical management 3. Pain management - [place] 4. GI prophylaxis - senna 5. DVT prophylaxis - Eliquis 2.5 mg twice a day 2 weeks 6. PT/OT - weightbearing as tolerated with walker 7. Encourage incentive spirometer use 8. Discharge planning - home today with health services Time with Patient: Less than 30
[2024-08-21] MEDS: hydrOXYzine pamoate 25 MG CAP PO PRN (13:45)
== END 2024-08-21 14:12 | disposition home health service (06) ==
LOC: OR 05:43 → 4SSUR 09:11 → OR 08-21 14:12
PROVIDERS: ATTEND Orthopaedic Surgery
DX: M17.11 Unilateral primary osteoarthritis, right knee (principal); E78.5 Hyperlipidemia, unspecified; G89.18 Other acute postprocedural pain; I10 Essential (primary) hypertension; Z79.01 Long term (current) use of anticoagulants; Z79.899 Other long term (current) drug therapy; Z87.891 Personal history of nicotine dependence; Z98.890 Other specified postprocedural states; Z79.1 Long term (current) use of non-steroidal anti-inflammatories (NSAID)
CPT/HCPCS: 73560; 27447; 64999; 64448; J2250; J1100; J0690 ×2; J2405; J3010; J2795; 80048; 83735; 85025

== ENCOUNTER → 2024-12-02 | Outpatient (CLI) | payer OTHER ==
[2024-12-02 21:15] LABS: BUN/Creat Ratio 14.67 Ratio (12.00-20.00); Blood Urea Nitrogen 13.2 mg/dL (9.0-27.0); Carbon Dioxide 27.5 mmol/L (21.6-31.8); Chloride 104 mmol/L (96-109); Glucose 97 mg/dL (70-110); Potassium 4.5 mmol/L (3.5-5.5); Sodium 140 mmol/L (135-145)
[2024-12-02 21:16] LABS: Calcium 9.1 mg/dL (8.7-10.3)
[2024-12-02 21:18] LABS: HCT 38.2 % (39.6-50.0); HGB 12.8 g/dL (13.0-17.0); MCH 29.8 pg (27.0-32.0); MCHC 33.5 g/dL (32.0-37.0); MCV 88.8 FL (80.0-97.0); Mean Platelet Volume 10.1 FL (9.5-12.2); NRBC Per 100 WBC 0 X 10*3/uL (0.00-0.01); Platelet Count 217 X 10*3/uL (140-440); RDW 12.7 % (11.5-14.5); WBC 4.51 X 10*3/uL (4.50-10.00)
[2024-12-02 21:19] LABS: Basophils # (A) 0.02 X 10*3/uL (0.00-0.10); Basophils % (A) 0.4 %; Eosinophils % (A) 2.2 %; Lymphocytes # (A) 0.88 X 10*3/uL (0.90-5.00); Lymphocytes % (A) 19.5 %; Monocytes # (A) 0.47 X 10*3/uL (0.20-1.00); Monocytes % (A) 10.4 %; Neutrophils # (A) 3.03 X 10*3/uL (1.80-7.70); Neutrophils % (A) 67.3 %
[2024-12-02 21:32] LABS: INR 0.94 sec (0.93-1.11); Prothrombin Time 10.6 sec (9.9-11.9)
== END | disposition home or self-care (01) ==
LOC: LABPAT 13:39
PROVIDERS: ATTEND Orthopaedic Surgery
DX: Z01.812 Encounter for preprocedural laboratory examination (principal); M19.012 Primary osteoarthritis, left shoulder; Z22.322 Carrier or suspected carrier of Methicillin resistant Staphylococcus aureus
CPT/HCPCS: 80048; 85025; 85610; 87070

== ENCOUNTER 2024-12-10 05:43 | Day surgery (SDC) | payer OTHER ==
--- NOTE | 2024-12-09 08:19 | P.HPOR ---
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 He notes anterior pain with overhead use and at night. He has tried medications along with a home exercise program with minimal relief. He notes daily pain that limits him. Review of Systems Per HPI Past Medical History Past Medical History: Hypertension, Liver Disease, Osteoarthritis (OA) History of Any Multi-Drug Resistant Organisms: None Reported Past Surgical History: Hernia Repair, Joint Replacement Additional Past Surgical History / Comment(s): right knee replacement Jul 2024 Past Anesthesia/Blood Transfusion Reactions: No Reported Reaction Smoking Status: Former smoker - Past Family History Father Family Medical History: Liver Disease, Respiratory Disorder Additional Family Medical History / Comment(s): emphysema Mother Family Medical History: No Reported History Medications and Allergies Home Medications Medication Instructions Recorded Confirmed Type Losartan-Hctz 50-12.5 mg [Hyzaar 1 tab PO DAILY 08/15/24 12/05/24 History 50-12.5] Rosuvastatin Calcium 5 mg PO HS 08/15/24 12/05/24 History Unk Multi Vitamin 1 tab PO DAILY 08/15/24 12/05/24 History Loratadine 10 mg PO HS 08/16/24 12/05/24 History Allergies Allergy/AdvReac Type Severity Reaction Status Date / Time No Known Allergies Allergy Verified 12/05/24 14:18 Physical Examination - Shoulder left Tenderness with palpation: anterior, bicipital groove Pain: with abduction, with forward flexion ROM: forward flexion: 140 degrees ROM: internal rotation: upper lumbar ROM: external rotation: 20 degrees Crepitus with motion: Yes Strength: abduction: 5/5 Strength: forward flexion: 5/5 Strength: external rotation: 5/5 Tests: internal impingement tests: positive, external impingment tests: positive Results The patient is a well-developed well-nourished male approximately 5 foot 8, 158 pounds of mesomorphic habitus. HEENT exam is nonfocal, neck is supple. He is tender about the left anterior glenohumeral joint. Moderate crepitus is noted. Impingement test, Neer test are positive. His distal neurovascular exam appears intact in the left upper extremity. - Diagnostic results Shoulder x-ray: image reviewed (3 views of the left shoulder obtained the office show severe glenohumeral joint osteoarthrosis with [id number] changes and subchondral sclerosis.) Assessment and Plan Assessment: Left severe glenohumeral joint osteoarthrosis Plan: I talked to the patient at length regarding his condition along with treatment options. At this point is quite symptomatic having pain and stiffness related to his left shoulder osteoarthrosis despite conservative measures. After a thorough discussion he opts to proceed with surgery. We will plan to proceed with left total shoulder arthroplasty. Risks and benefits were discussed at length in layman's terms.
[2024-12-10] MEDS: LACTATED RINGERS 1,000 ML IV ONE ×2 (06:30→08:45)
[2024-12-10] MEDS: MELOXICAM 7.5 MG TAB PO PRN (06:36)
[2024-12-10] MEDS: LACTATED RINGERS 1,000 ML IV SCH (06:36)
[2024-12-10] MEDS: ACETAMINOPHEN TAB 500 MG TAB PO PRN (06:36)
[2024-12-10] MEDS: ONDANSETRON 4 MG/2 ML VIAL IVP ONE (06:37)
[2024-12-10] MEDS: SCOPOLAMINE 1 MG/72 HR PATCH TRANSDERM ONE (06:37)
[2024-12-10] MEDS: DEXAMETHASONE SOD PHOSPHATE 4 MG/ML 1 ML VIAL IV ONE (06:37)
[2024-12-10] MEDS: MIDAZOLAM 2 MG/2 ML VIAL IVP ONE (06:51)
[2024-12-10] MEDS ORDERED: HYDROmorphone 0.5 MG/0.5 ML SYRINGE IVP PRN (07:00)
[2024-12-10] MEDS ORDERED: MIDAZOLAM 2 MG/2 ML VIAL IV PRN (07:00)
--- NOTE | 2024-12-10 07:18 | P.ANPRN ---
Procedure Note - Anesthesia - Nerve Block Performed Left Interscalene Single Time Out Performed: Yes Date of Procedure: 12/10/24 Procedure Start Time: 06:52 Procedure Stop Time: 06:57 Location of Patient: PreOp Indication: Acute Post-Operative Pain, Analgesia, Requested by Surgeon Sedation Type: Sedate with meaningful contact maintained Preparation: Sterile Prep Position: Sitting Catheter: None Needle Types: Pajunk Needle Gauge: 21 Ultrasound used to visualize needle placement: Yes Ultrasound used to observe medication spread: Yes Injectate: 0.5% Ropivacaine (see comment for volume) ([id number]. Negative stimulation @0.5MA) Blood Aspirated: No Pain Paresthesia on Injection Noted: No Resistance on Injection: Normal Image Stored and Saved: Yes Events: Uneventful and Well Tolerated
[2024-12-10] MEDS ORDERED: NEOSTIGMINE 1 MG/ML 10 ML VIAL ONE (07:23)
[2024-12-10] MEDS ORDERED: DEXAMETHASONE SOD PHOSPHATE 4 MG/ML 1 ML VIAL ONE (07:23)
[2024-12-10] MEDS ORDERED: ROPIVACAINE 5 MG/ML 30 ML VIAL ONE (07:23)
[2024-12-10] MEDS ORDERED: ROCURONIUM 10 MG/ML (5 ML VIAL) IV ONE (07:23)
[2024-12-10] MEDS ORDERED: PROPOFOL 10 MG/ML 20 ML VIAL IV ONE (07:23)
[2024-12-10] MEDS ORDERED: SODIUM CHLORIDE 0.9% (PF) 10 ML VIAL ONE (07:23)
[2024-12-10] MEDS ORDERED: ePHEDrine 50 MG/ML 1 ML VIAL ONE (07:23)
[2024-12-10] MEDS ORDERED: SUCCINYLCHOLINE CHLORIDE 200 MG/10 ML VIAL IV ONE (07:23)
[2024-12-10] MEDS ORDERED: LIDOCAINE 1% INJ 10MG/ML (20 ML MDV) ONE (07:23)
[2024-12-10] MEDS ORDERED: GLYCOPYRROLATE 0.2 MG/ML 2 ML VIAL ONE (07:23)
[2024-12-10] MEDS ORDERED: VASOPRESSIN 20 UNIT/ML 1 ML VIAL ONE (07:23)
[2024-12-10] MEDS ORDERED: fentaNYL (PF) 50 MCG/ML 2 ML AMP ONE (07:23)
[2024-12-10] MEDS ORDERED: TRANEXAMIC 1,000 MG/100ML-NACL PREMIX BAG ONE (07:23)
[2024-12-10] MEDS ORDERED: PHENYLEPHRINE 10 MG/ML VIAL ONE (07:23)
[2024-12-10] MEDS: ceFAZolin 1,000 MG in SODIUM CHLORIDE 0.9% 1,000 ML IRRIGATION ONE (08:00)
[2024-12-10] MEDS ORDERED: HYDROcodone/APAP 5-325MG 1 EACH TAB PO PRN (09:34)
[2024-12-10] MEDS ORDERED: ONDANSETRON 4 MG/2 ML VIAL IVP PRN (09:34)
[2024-12-10] MEDS ORDERED: HYDROmorphone 1 MG/ML 1 ML SYRINGE IVP PRN (09:34)
--- NOTE | 2024-12-10 09:45 | P.OP ---
Date of Procedure: 12/10/24 Preoperative Diagnosis: Left severe glenohumeral joint osteoarthrosis Postoperative Diagnosis: Same Procedure(s) Performed: Left total shoulder arthroplasty Implants: Depuy Inhance size large cemented glenoid component, size large stemless humeral component, 46 x 15.5 mm humeral head. [facility] Sur[facility]: Pino Wood Juke Box Servicer #1: Yoel Rivera Estimated Blood Loss (ml): 100 Pathology: none sent Condition: stable Disposition: PACU Indications for Procedure: The patient is a 64-year-old male who presents with progressive left shoulder pain secondary to osteoarthrosis despite conservative measures. A discussion of the risks and benefits of operative intervention versus continued conservative measures was made with the patient. He opted to proceed with surgery. Operative risks include infection, neurovascular injury, development of blood clots, possible component loosening, component failure, and possible need for subsequent procedures was discussed. Informed consent was obtained. Operative Findings: As below Description of Procedure: The patient was brought to the operating room, and after induction of general anesthesia was placed in the beachchair position. The bony prominences were appropriately padded. The right upper extremity was prepped and draped in normal fashion. A deltopectoral incision was then made lateral to the coracoid process extending approximately 12 cm. The skin was incised sharply. Subcutaneous tissues were divided bluntly. Electrocautery was used for hemostasis. The deltopectoral interval was identified and the cephalic vein gently retracted laterally with the deltoid. Subdeltoid adhesions were bluntly dissected. A self-retaining retractor was placed. The clavipectoral fascia was opened and the conjoined tendon gently retracted medially. The upper one third of the pectoralis major was released to help facilitate exposure. The biceps was identified and the sheath was opened. The rotator interval was opened. The biceps was tenotomized and allowed to retract distally. The subscapularis peel was then performed and this was tagged with #2 Ethibond. The humeral head was then exposed releasing the capsule off the humeral neck. The shoulder was gently dislocated. The cutting guide was placed planning on a cut flush with the rotator cuff insertion and 30 of retroversion. The cutting block was pinned in place. The humeral head cut was then made. This measured most appropriately 46 mm x 15 mm. Residual inferior osteophytes were carefully removed flush with the lower [place] cortical bone. The alignment guide was placed along with the central pin. The reamer was used to the appropriate depth. The trial stemless humeral component was placed and impacted. A posterior glenoid retractor was placed. The glenoid was then exposed releasing the labrum from the 6-12 o'clock position. Residual labral tissue was removed. The glenoid sized most appropriate a large. A guidewire was then inserted planning on the appropriate version. The glenoid was reamed down to a bleeding bony surface. The trial component was placed. There was good anterior to posterior and inferior to superior fit. The trial component was removed. Pulsatile lavage was utilized. The bony surface was dried. The peripheral peg holes were then pressurized with cement utilizing a syringe. Excess cement was removed. Cement was placed around the peripheral ring. The implant was then impacted and fully seated. This was held in place until the cement had sufficiently hardened. Attention was then paid again towards preparing the proximal humerus. A trial 46.5 mm x 15.5 mm humeral head was placed in the neutral position and the shoulder was gently reduced. It was taken through a range of motion. It was felt to be stable in flexion and extension with internal and external rotation. I felt there was adequate cheondoism of soft tissue tension. The shoulder was gently dislocated. The trial components were then removed. A #2 Ethibond was placed laterally for reattachment of the lesser tuberosity. A stemless humeral component was placed and was fully seated. There was good stability. The 46.5 mm x 15.5 mm humeral head in the neutral position was then gently impacted. The shoulder was then gently reduced and taken through range of motion and was felt to be stable. Pulsatile lavage was utilized. The subscapularis was reattached utilizing #2 Ethibond suture. The rotator interval was closed with #2 Ethibond suture. She had minimal drainage at this point therefore a deep drain was not placed. The deltopectoral interval was closed with interrupted 2-0 Vicryl sutures. The subcu tissues were reapproximated with interrupted 2-0 Vicryl sutures. The skin was reprepped with 3-0 subcuticular Prolene suture. Steri-Strips were applied. A sterile dressing was applied in addition to a sling. The patient was then awoken from general anesthesia and transferred to recovery room in good condition. Blood loss was estimated at 100 mL. No complications were incurred. Sponge and needle counts were correct at the end the case. SHONNA Linder assisted during the major components the case to include positioning, exposure, resection, implantation, and closure.
--- NOTE | 2024-12-10 10:01 | XR ---
EXAMINATION TYPE: XR shoulder limited LT DATE OF EXAM: 12/10/2024 9:57 AM COMPARISON: None. CLINICAL INDICATION: Male, 64 years old with history of s/p total shoulder arthroplasty, pain TECHNIQUE: XR shoulder limited LT views were obtained FINDINGS: Single postoperative view of the left shoulder demonstrates a postoperative change of the humeral hea d prosthesis. Postoperative alignment appears to be within normal limits. Postsurgical soft tissue ch anges noted. IMPRESSION: As above [facility], , 12/10/2024 9:59 AM
[2024-12-10 13:20] LABS: Basophils % (A) 0 %; Eosinophils % (A) 0 %; HCT 36.7 % (39.0-53.0); HGB 12.4 gm/dL (13.0-17.5); Lymphocytes # (A) 0.4 k/uL (1.0-4.8); Lymphocytes % (A) 4 %; MCHC 33.7 g/dL (31.0-37.0); MCV 88.9 fL (80.0-100.0); Mean Platelet Volume 7.3; Monocytes # (A) 0.2 k/uL (0-1.0); Monocytes % (A) 2 %; Neutrophils % (A) 94 %; Platelet Count 211 k/uL (150-450); RBC 4.12 m/uL (4.30-5.90); RDW 12.9 % (11.5-15.5); WBC 10.7 k/uL (3.8-10.6)
--- NOTE | 2024-12-10 16:03 | P.CONS ---
History of Present Illness - Reason for Consult Consult date: 12/10/24 Medical Management Requesting physician: Pino Wood - History of Present Illness History of Presenting Illness: Patient is a pleasant 64-year-old male with a past medical history of hypertension, hyperlipidemia, and osteoarthritis. He is currently admitted under orthopedic surgery team and is status post left total shoulder arthroplasty. Surgical procedure was completed by Dr. Wood secondary to severe left glenohumeral joint osteoarthrosis. We were consulted for medical management throughout hospitalization. Patient seen and fully evaluated in room 457 status post completion of surgical procedure. Patient currently reports shoulder pain is controlled secondary to nerve block and states full movement and sensation of left hand with the e xception of mild tingling in his thumb. He reports he has been urinating without any difficulties and denies experiencing any headache, lightheadedness, dizziness, dysphagia, chest pain, palpitations, shortness of breath, cough or congestion, nausea, vomiting, or any other complaints at this time. Left arm in sling with postsurgical dressing in place. Review of systems: Pertinent positives and negatives as discussed in HPI, a complete review of systems was performed and all other systems are negative. Physical exam: Vital signs reviewed and stable. General: Nontoxic, no distress and appears stated age. Derm: Skin warm and dry, normal coloration for ethnicity. Head: Atraumatic, normocephalic and symmetric. Eyes: EOM's intact, no lid lag, and anicteric sclera Mouth: no lip lesions, mucus membranes moist Cardiovascular: regular rate and rhythm with normal S1S2, no murmur, positive posterior tibial pulses bilaterally, and cap refill < 2 seconds. Lungs: Respirations even, regular, and unlabored on room air. Lungs CTA bilaterally, no rhonchi, no rales, no wheezing, and no accessory muscle usage. Abdominal: soft, nontender to palpation, no guarding, no appreciable organomegaly Ext: No gross muscle atrophy, no edema, no contractures. Movement and sensation intact. Postoperative dressing and sling in place to left shoulder/arm. Neuro: Speech clear, face symmetrical and CN II-XII grossly intact with no noted focal neuro deficits Psych: Alert and oriented to person, place, time, and situation. Appropriate and pleasant affect. Assessment and Plan of Care: Status post left total shoulder arthroplasty -Management per primary admitting orthopedic surgery team including DVT prophylaxis, pain management, wound/dressing management, advancement of activity of left arm/shoulder including weightbearing, and PT/OT. -Currently DVT prophylaxis with HERMELINDO valero and SHAKIRs. Hypertension -Monitor vital signs and continue daily medication regimen with l osartan/hydrochlorothiazide 50-12.5 mg tablets daily. Hyperlipidemia -Continue rosuvastatin 5 mg nightly. Data reviewed: -Vital signs reviewed. Blood pressure 114/69, heart rate 78, respiratory rate 16, 97.5 F, and SpO2 of 100% on room air. -Reviewed operative report. Estimated blood loss reported to be 100 cc. -Reviewed postoperative labs. CBC showing mild leukocytosis with WBC count of 10.7, hemoglobin 12.4, platelet count of 211. Thank you for allowing us to participate in the care of this pleasant patient. Do not hesitate to contact us with questions. Someone can be reached from the [facility] all hours of the day at [phone] or via [employer]. Patient was seen independently by Nurse Practitioner. This document was prepared using [employer] dictation software. Please allow for errors in product safety manager while rare they do occur. Gildardo Brewer NP rendered care for this patient independently, reviewed the findings and plan as documented in the note above and agree with plan. I did not physically speak with or examine the patient on this date. Past Medical History Past Medical History: Hypertension, Liver Disease, Osteoarthritis (OA) History of Any Multi-Drug Resistant Organisms: None Reported Past Surgical History: Hernia Repair, Joint Replacement Additional Past Surgical History / Comment(s): right knee replacement Jul 2024 Past Anesthesia/Blood Transfusion Reactions: No Reported Reaction Smoking Status: Former smoker - Past Family History Father Family Medical History: Liver Disease, Respiratory Disorder Additional Family Medical History / Comment(s): emphysema Mother Family Medical History: No Reported History Medications and Allergies Home Medications Medication Instructions Recorded Confirmed Type Losartan-Hctz 50-12.5 mg [Hyzaar 1 tab PO DAILY 08/15/24 12/05/24 History 50-12.5] Rosuvastatin Calcium 5 mg PO HS 08/15/24 12/05/24 History Unk Multi Vitamin 1 tab PO DAILY 08/15/24 12/05/24 History Loratadine 10 mg PO HS 08/16/24 12/05/24 History Allergies Allergy/AdvReac Type Severity Reaction Status Date / Time No Known Allergies Allergy Verified 12/10/24 06:12 Physical Exam Vitals: Vital Signs Temp Pulse Pulse Resp BP BP Pulse Ox 12/10/24 12:10 78 16 114/69 100 12/10/24 11:40 80 17 104/68 100 12/10/24 11:25 77 16 106/65 100 12/10/24 11:10 82 18 109/70 100 12/10/24 10:54 78 18 115/69 100 12/10/24 10:39 78 18 111/67 100 12/10/24 10:24 81 17 110/69 100 12/10/24 10:09 80 18 110/67 100 12/10/24 09:54 84 17 108/66 100 12/10/24 09:39 97.5 F L 88 12 117/74 100 12/10/24 07:06 75 16 141/85 100 12/10/24 06:20 98.4 F 77 16 140/84 98 Intake and Output 12/09/24 12/10/24 12/10/24 22:59 06:59 14:59 Intake Total 200 1751 Balance 200 1751 Intake: IV 200 1751 Other: Weight 74.1 kg Results CBC & Chem 7: 12/10/24 12:55 Labs: Abnormal Lab Results - Last 24 Hours (Table) 12/10/24 Range/Units 12:55 WBC 10.7 H (3.8-10.6) k/uL RBC 4.12 L (4.30-5.90) m/uL Hgb 12.4 L (13.0-17.5) gm/dL Hct 36.7 L (39.0-53.0) % Neutrophils # 10.0 H (1.3-7.7) k/uL Lymphocytes # 0.4 L (1.0-4.8) k/uL
[2024-12-10] MEDS: HYDROcodone/APAP 7.5-325MG 1 EACH TAB PO PRN (21:06)
[2024-12-10] MEDS: SENNOSIDES-DOCUSATE SODIUM 1 EACH TAB PO PRN (21:07)
[2024-12-10] MEDS: ATORVASTATIN 10 MG TAB PO SCH (21:07)
[2024-12-11] MEDS: HYDROmorphone 0.5 MG/0.5 ML SYRINGE IVP PRN (08:18)
[2024-12-11 08:36] LABS: HCT 30.8 % (39.6-50.0); HGB 10.7 g/dL (13.0-17.0); MCH 30.7 pg (27.0-32.0); MCHC 34.7 g/dL (32.0-37.0); MCV 88.3 FL (80.0-97.0); Mean Platelet Volume 10.4 FL (9.5-12.2); NRBC Per 100 WBC 0 X 10*3/uL (0.00-0.01); Platelet Count 191 X 10*3/uL (140-440); RBC 3.49 X 10*6/uL (4.40-5.60); RDW 12.9 % (11.5-14.5)
[2024-12-11 08:41] VITALS: BP 100/60; PULSE 65; RESP 19; TEMP 97.5
[2024-12-11 09:03] LABS: BUN/Creat Ratio 15.89 Ratio (12.00-20.00); Blood Urea Nitrogen 14.3 mg/dL (9.0-27.0); Carbon Dioxide 25.6 mmol/L (21.6-31.8); Chloride 104 mmol/L (96-109); Glucose 111 mg/dL (70-110); Potassium 4.3 mmol/L (3.5-5.5); Sodium 139 mmol/L (135-145)
[2024-12-11 09:04] LABS: ALT 43 U/L (10-49); AST 31 U/L (14-35); Albumin 3.8 g/dL (3.8-4.9); Albumin/Globulin Ratio 2.11 Ratio (1.60-3.17); Alkaline Phosphatase 93 U/L (41-126); Calcium 8.7 mg/dL (8.7-10.3); Globulin 1.8 g/dL (1.6-3.3); Total Bilirubin 0.9 mg/dL (0.3-1.2); Total Protein 5.6 g/dL (6.2-8.2)
[2024-12-11] MEDS: ASPIRIN 81 MG PO SCH (10:42)
[2024-12-11] MEDS: LOSARTAN-HCTZ 50-12.5 MG 1 EACH TAB PO SCH (10:43)
--- NOTE | 2024-12-11 11:23 | P.PN ---
Subjective Progress Note Date: 12/11/24 Principal diagnosis: Status post left total shoulder arthroplasty Patient was evaluated today at bedside, he is resting comfortably in his hospital bed, family members are present. Patient's pain is tolerable at this time, he did receive a dose of IV Dilaudid this morning. Patient has been urinating with no issues since surgery. He is been utilizing the arm sling as instructed. He denies any headaches, lightheadedness, chest pain or shortness of breath Objective - Vital Signs Vital signs: Vital Signs Temp 97.5 F L 12/11/24 07:11 Pulse 65 12/11/24 07:11 Resp 19 12/11/24 07:11 BP 100/60 12/11/24 07:11 Pulse Ox 99 12/11/24 07:11 FiO2 Intake & Output 12/10/24 12/11/24 12/11/24 18:59 06:59 18:59 Intake Total 1751 2240 Output Total 300 1000 Balance 1451 1240 Weight 74.1 kg Intake: IV 1751 Intake, IV Titration 50 Amount ceFAZolin 2 gm In Sodium 50 Chloride 0.9% 50 ml @ 100 mls/hr IVPB ONCE PRN Rx# :[id number] Oral 2190 Output: Urine 300 1000 Other: # Voids 5 - Exam Left upper extremity: Postoperative dressing was removed, Steri-Strips are in good position along with suture. There is no drainage noted. Mild ecchymosis and swelling present in the extremity. Patient's elbow extension, elbow flexion, wrist extension, wrist flexion, deputy fire marshal and finger intrinsics are intact, range of motion of the shoulder was not assessed. Sensory exam to light touch is intact throughout the extremity. His radial and ulnar pulse are 2+ - Labs CBC & Chem 7: 12/11/24 04:05 12/11/24 04:05 Labs: Abnormal Lab Results - Last 24 Hours (Table) 12/10/24 12/11/24 12/11/24 Range/Units 12:55 04:05 04:05 WBC 10.7 H (3.8-10.6) k/uL RBC 4.12 L 3.49 L (4.30-5.90) m/uL Hgb 12.4 L 10.7 L (13.0-17.5) gm/dL Hct 36.7 L 30.8 L (39.0-53.0) % Neutrophils # 10.0 H (1.3-7.7) k/uL Lymphocytes # 0.4 L (1.0-4.8) k/uL Glucose 111 H (70-110) mg/dL Total Protein 5.6 L (6.2-8.2) g/dL Assessment and Plan Assessment: Postoperative day 1 status post left total shoulder arthroplasty Acute blood loss anemia, expected surgical outcome Plan: Pain control, plan for discharge home on [place] 7.5 mg / 325 mg DVT prophylaxis, aspirin 81 mg for 2 weeks Ferrous sulfate 325 mg daily for anemia Wound care instructions were discussed, this to include icing and elevating, bandaging and showering instructions Arm sling instructions were discussed along with activity level modification Encourage incentive spirometer Medical recommendations appreciated Discharge planning: Patient stable for discharge home today Time with Patient: Less than 30
--- NOTE | 2024-12-11 11:28 | P.DS ---
Providers Date of admission: 12/10/2024 Expected date of discharge: 12/11/24 Attending physician: Pino Wood Consults: 12/10/24 09:34 Consult Physician Routine Consulting Provider: Malena Storey Consult Reason/Comments: medical management Do you want consulting provider notified?: Yes Primary care physician: [facility] Course: Date of admission: 12/10/2024 Date of discharge: 12/11/2024 Admission diagnosis: Status post left total shoulder arthroplasty Discharge diagnosis: Same Attending physician: Dr. Wood Surgical procedures: Left total shoulder arthroplasty Brief history: Patient is a 64-year-old male with a history of progressive primary left shoulder osteoarthritis. At this point patient has failed conservative treatment measures and has opted to proceed with a elective left total shoulder arthroplasty. Hospital course: Details of patient's surgery can be found in operative report. Patient tolerated the procedure well and was subsequently transported to orthopedic floor. Patient's orthopeidc and medical care was provided daily. Patient had daily laboratory tests performed for evaluation of overall blood counts. Patient had daily physical therapy to include strengthening range of motion as well as education with walker ambulation. Patient was treated with aspirin for their postoperative DVT prophylaxis during their inpatient stay. Patient was noted to have a relatively uneventful postoperative course. Patient reported satisfactory pain control with oral pain medications by postoperative day 0. Patient showed satisfactory progress with physical therapy. Patient moved steadily through the program and had no difficulty meeting the goals by postoperative day 1. Given patient's otherwise satisfactory course and having met physical therapy goals, plan is to discharge patient home on postoperative day 1. Discharge condition/disposition: Patient will be discharged home in stable condition. Discharge medications: Instructions are given on resumption of patient's normal daily medications per primary care recommendation, in addition patient will be prescribed [place] 7.5 mg / 325 mg, ferrous sulfate 325 mg, senna S, aspirin 81 mg. Discharge instructions: 1. Wound care and infection precautions, keep incision dry and covered while showering, no lotions, creams, moisturizers. No soaking, tubs, pools, hottubs. Do not scrub over the incision. 2. Utilize arm sling, okay to take breaks. Avoid active range of motion of the shoulder. Hand and wrist and elbow range of motion is okay 3. Ice and elevate when necessary. Do not exceed 20 minutes per hour with ice pack. 4. Utilize compression sleeve until seen at first follow up appointment. 5. Pain meds and anticoagulants per prescription. 6. Pain medication has potential to cause constipation. Increase oral fluid and fiber intake. Contact primary care provider if you have not had a bowel movement within 48 hours after discharge 7. No anti-inflammatory medication until discussed at first post operative visit, this including Motrin, Aleve, Mobic, Diclofenac 8. Follow up in office at 2 weeks postop with Chalino Rivera PA-C/Kaden Asif PA-C 9. Follow up with your primary care doctor 7-10 days after discharge. 10. Contact [facility] with any questions, . Procedures: Left total shoulder arthroplasty Patient Condition at Discharge: Good Plan - Discharge Summary Discharge Rx Participant: No New Discharge Prescriptions: New Aspirin [Adult Low Dose Aspirin EC] 81 mg PO BID #30 tab Ferrous Sulfate [Iron (65 MG Elemental)] 325 mg PO DAILY #30 tab HYDROcodone/APAP 7.5-325MG [[place] 7.5] 1 each PO Q4HR PRN #42 tab PRN Reason: Pain Sennosides/Docusate Sodium [Senna-S 8.6-50 mg Tablet] 2 each PO DAILY PRN #30 tablet PRN Reason: Constipation No Action Rosuvastatin Calcium 5 mg PO HS Losartan-Hctz 50-12.5 mg [Hyzaar 50-12.5] 1 tab PO DAILY Unk Multi Vitamin 1 tab PO DAILY Loratadine 10 mg PO HS Discharge Medication List Losartan-Hctz 50-12.5 mg [Hyzaar 50-12.5] 1 tab PO DAILY 08/15/24 [History] Rosuvastatin Calcium 5 mg PO HS 08/15/24 [History] Unk Multi Vitamin 1 tab PO DAILY 08/15/24 [History] Loratadine 10 mg PO HS 08/16/24 [History] Aspirin [Adult Low Dose Aspirin EC] 81 mg PO BID #30 tab 12/11/24 [Rx] Ferrous Sulfate [Iron (65 MG Elemental)] 325 mg PO DAILY #30 tab 12/11/24 [Rx] HYDROcodone/APAP 7.5-325MG [[place] 7.5] 1 each PO Q4HR PRN #42 tab 12/11/24 [Rx] Sennosides/Docusate Sodium [Senna-S 8.6-50 mg Tablet] 2 each PO DAILY PRN #30 tablet 12/11/24 [Rx] Follow up Appointment(s)/Referral(s): Kaden Asif PAC [PHYSICIAN ADVICE NURSE] - 2 Weeks Activity/Diet/Wound Care/Special Instructions: Orthopedic discharge instructions: 1. Resume home medications 2. Pain medication as needed 3. Take aspirin as instructed 4. Ice and elevate the shoulder often 5. Okay to take breaks from the arm sling, no active range of motion of the shoulder 6. Keep incision covered and dry while showering 7. Plan for follow-up with [facility] 2 weeks Discharge Disposition: HOME SELF-CARE
--- NOTE | 2024-12-11 12:36 | P.PN ---
Subjective Progress Note Date: 12/11/24 Hospital course: Patient is a pleasant 64-year-old male with a past medical history of hypertension, hyperlipidemia, and osteoarthritis. He is currently admitted under orthopedic surgery team and is status post left total shoulder arthroplas ty. Surgical procedure was completed by Dr. Wood secondary to severe left glenohumeral joint osteoarthrosis. We were consulted for medical management throughout hospitalization. Physical exam: Patient seen and fully evaluated at bedside this morning. He reports moderate postoperative pain but otherwise denies any complaints. Reports full resolution of previous tingling he felt in his left thumb and denies any other complaints including headache, lightheadedness, dizziness, chest pain, palpitations, short ness of breath, cough or congestion, nausea, vomiting, or any other complaints. Vital signs reviewed and stable. General: Nontoxic, no distress and appears stated age. Derm: Skin warm and dry, normal coloration for ethnicity. Head: Atraumatic, normocephalic and symmetric. Eyes: EOM's intact, no lid lag, and anicteric sclera Mouth: no lip lesions, mucus membranes moist Cardiovascular: regular rate and rhythm with normal S1S2, no murmur, positive posterior tibial pulses bilaterally, and cap refill < 2 seconds. Lungs: Respirations even, regular, and unlabored on room air. Lungs CTA bilate rally, no rhonchi, no rales, no wheezing, and no accessory muscle usage. Abdominal: soft, nontender to palpation, no guarding, no appreciable organomegaly Ext: No gross muscle atrophy, no edema, no contractures. Movement and sensation intact. Postoperative dressing and sling in place to left shoulder/arm. Neuro: Speech clear, face symmetrical and CN II-XII grossly intact with no noted focal neuro deficits Psych: Alert and oriented to person, place, time, and situation. Appropriate and pleasant affect. Assessment and Plan of Care: Status post left total shoulder arthroplasty -Management per primary admitting orthopedic surgery team including DVT prophylaxis, pain management, wound/dressing management, advancement of activity of left arm/shoulder including weightbearing, and PT/OT. -Currently DVT prophylaxis with HERMELINDO hose and SCDs. Postoperative blood loss anemia -Preoperative hemoglobin of 12.4 with postoperative hemoglobin of 10.7. This is a stable and expected finding. No need for transfusion or further intervention at this time. Patient to be discharged home with ferrous sulfate 3 925 mg daily. Hypertension -Monitor vital signs and continue daily medication regimen with losartan/hydrochlorothiazide 50-12.5 mg tablets daily. Hyperlipidemia -Continue rosuvastatin 5 mg nightly. Data reviewed: -Vital signs reviewed. Blood pressure 100/60, heart rate 65, respiratory rate 19, temp 97.5 F, and SpO2 of 99% on room air. -Reviewed postoperative labs. CBC showing acute postoperative blood loss anemia with hemoglobin of 10.7 with preoperative hemoglobin of 12.4. BMP unremarkable. Blood glucose 111. Magnesium 2.0. Liver profile unremarkable with exception of slightly low protein of 5.6. Patient medically optimized for discharge once cleared by primary admitting orthopedic surgery team. Thank you for allowing us to participate in the care of this pleasant patient. Do not hesitate to contact us with questions. Someone can be reached from the [facility] hospitalist group all hours of the day at [phone] or via [employer]. Patient was seen independently by Nurse Practitioner. This document was prepared using [employer] dictation software. Please allow for errors in fabrication department supervisor while rare they do occur. Gildardo Brewer NP rendered care for this patient independently, reviewed the findings and plan as documented in the note above and agree with plan. I did not physically speak with or examine the patient on this date. Objective - Vital Signs Vital signs: Vital Signs Temp 98.5 F 12/11/24 01:58 Pulse 84 12/11/24 01:58 Resp 15 12/11/24 01:58 BP 100/62 12/11/24 01:58 Pulse Ox 98 12/11/24 01:58 FiO2 Intake & Output 12/10/24 12/11/24 12/11/24 18:59 06:59 18:59 Intake Total 1751 2240 Output Total 300 1000 Balance 1451 1240 Weight 74.1 kg Intake: IV 1751 Intake, IV Titration 50 Amount ceFAZolin 2 gm In Sodium 50 Chloride 0.9% 50 ml @ 100 mls/hr IVPB ONCE PRN Rx# :[id number] Oral 2190 Output: Urine 300 1000 Other: # Voids 5 - Labs CBC & Chem 7: 12/11/24 04:05 12/11/24 04:05 Labs: Abnormal Lab Results - Last 24 Hours (Table) 12/10/24 Range/Units 12:55 WBC 10.7 H (3.8-10.6) k/uL RBC 4.12 L (4.30-5.90) m/uL Hgb 12.4 L (13.0-17.5) gm/dL Hct 36.7 L (39.0-53.0) % Neutrophils # 10.0 H (1.3-7.7) k/uL Lymphocytes # 0.4 L (1.0-4.8) k/uL
== END 2024-12-11 15:57 | disposition home or self-care (01) ==
LOC: OR 05:43 → 4SSUR 12:29 → OR 12-11 15:57
PROVIDERS: ATTEND Orthopaedic Surgery
DX: M19.012 Primary osteoarthritis, left shoulder (principal); I10 Essential (primary) hypertension; E78.5 Hyperlipidemia, unspecified; Z98.890 Other specified postprocedural states; Z96.651 Presence of right artificial knee joint; Z87.891 Personal history of nicotine dependence; Z96.612 Presence of left artificial shoulder joint; Z79.899 Other long term (current) drug therapy
CPT/HCPCS: 64415; 80053; 83735; 85025; 85027; 73020; 23472; C1776; C1713; J2250; J1100; J0690 ×2; J2405; J1171